=== PATIENT | female | born 1985 | race African-American/Black ===

== ENCOUNTER 2019-07-29 09:48 | Emergency (ER) | payer BC, SELFPAY ==
[2019-07-29 09:52] VITALS: BP 124/81; PULSE 60; RESP 16; TEMP 36.5; O2SAT 100
--- NOTE | 2019-07-29 10:02 | PC.NURSE ---
After patient arrived to room, This RN began to talk to patient and ask assessment questions when Pt states I'm just going to come back, I just want to go home right now. [facility].
== END 2019-07-29 10:14 | disposition left against medical advice (07) ==
DX: R10.9 Unspecified abdominal pain (principal)
CPT/HCPCS: 99199

== ENCOUNTER 2019-09-05 17:50 | Emergency (ER) | payer BC, SELFPAY ==
--- NOTE | ~2019-09-05 | CT_ITS ---
EXAMINATION: CT abdomen pelvis w con DATE: 09/05/2019 19:10 INDICATION: Low abdominal pain. TECHNIQUE: Computed tomography (CT) of the abdomen and pelvis was performed with 100 mL Omnipaque 350 intravenous contrast. Automated exposure control and iterative reconstruction technique were employe d. The dose-length product was 523.62 mGy-cm. COMPARISON: CT abdomen 11/21/2003 FINDINGS: The visualized portions of the lung bases demonstrates mild atelectasis. There is a 2.5 x 1 .1 cm nodule at right lung base abutting the pleura with punctate calcification. There are a few nodu les in the lungs measuring up to 4 mm, likely benign. No pleural effusion. The heart size is normal. No pericardial effusion. The liver, gallbladder, pancreas, spleen, and adrenal glands are normal. The re is moderate atrophy of right kidney. There are cysts in right kidney measuring up to 1.5 cm. Left kidney is normal. There are no dilated loops of bowel. The appendix is not visualized. There are no p athologically enlarged lymph nodes. There is no free intraperitoneal fluid. There is mild lumbar spon dylosis. IMPRESSION: 1. No etiology for the patient's symptoms. 2. 2.5 x 1.1 cm nodule at right lung base abutting the pleura. The differential diagnosis includes fi brous tumor of the pleura, granulomatous disease, and malignancy. PET/CT is recommended. Reviewed, dictated and finalized at location A. IMPRESSION: 1. No etiology for the patient's symptoms. 2. 2.5 x 1.1 cm nodule at right lung base abutting the pleura. The differential diagnosis includes fibrous tumor of the pleura, granulomatous disease, and mal ignancy. PET/CT is recommended.
[2019-09-05 17:53] VITALS: BP 118/60; PULSE 61; RESP 16; TEMP 36.5; O2SAT 96
--- NOTE | 2019-09-05 18:00 | ED.FEMALEGU ---
HPI - Female Genitourinary General Chief complaint: Urogenital-Female Stated complaint: LOW BACK PAIN Time Seen by Provider: 09/05/19 17:55 Source: patient Mode of arrival: ambulatory Limitations: no limitations History of Present Illness HPI Narrative: A 34 y/o female pt presents to the ED, with c/o intermittent ABD pain and lower back pain x 1 week. Pt states that she cannot bend over, denies N/V/D, or dysuria. She notes taking Tylenol with Codeine for her pain that she was previously prescribed for CP. MD elicited complaint: other (ABD Pain, lower back pain) Onset (ago): week(s) (1) Location of symptoms: low back Associated symptoms: abdominal pain and back pain (lower) Treatment prior to arrival: other (Tylenol with Codeine) Related Data Allergies Allergy/AdvReac Type Severity Reaction Status Date / Time No Known Allergies Allergy Verified 09/05/19 18:42 Review of Systems Review of Systems: All systems reviewed & are unremarkable except as noted in HPI and below Gastrointestinal: Gastrointestinal: Reports abdominal pain, Denies diarrhea, Denies nausea and Denies vomiting Genitourinary: Genitourinary: Denies dysuria Musculoskeletal: Musculoskeletal: Reports back pain (lower) and Reports other (unable to bend over) PMFSH Past Medical History Medical History Back pain Sinus problem UTI (urinary tract infection) Surgical History Surgical History H/O tubal ligation History of appendectomy History of hysterectomy Social History Social History Smoking status: Never smoker Gender identity (if verbalized by the patient): Female Exam Narrative: Exam Narrative: APPEARANCE: No acute distress, nontoxic, resting in bed Eyes: EOMI HEENT: Normocephalic, atraumatic, CV: Regular rate and rhythm without murmur RESPIRATORY: No respiratory distress. Clear to auscultation bilaterally. Abdomen: Soft, nondistended, tender palpation right lower quadrant left lower quadrant, no tenderness right upper quadrant left lower quadrant, no rebound or guarding MUSCULOSKELETAl: Moves all extremities, no clubbing cyanosis or edema Back: No midline lumbar tenderness to palpation or step-off, tender to palpation over bilateral paravertebral muscles L3-5 , pain increased with forward flexion NEURO: Awake and alert. Following commands, speech normal, no focal deficits, muscle strength 5 out of 5 bilateral lower extremities, bilateral patellar reflex 2+ SKIN:: Warm, dry. Normal Color no rash or lesions Course Course Emergency Course: Discussed with patient results of workup and diagnosis. Discussed need for follow-up with primary care, proper use of medication, and reasons to return to the emergency department. Patient understands and agrees to current treatment plan. Discussed with patient pulmonary nodule seen on CT and need for follow-up as an outpatient for further imaging to rule out cancer Vital Signs Vital signs: Vital Signs Temperature 97.7 F 09/05/19 17:53 Pulse Rate 61 09/05/19 17:53 Respiratory Rate 16 09/05/19 17:53 Blood Pressure 118/60 09/05/19 17:53 Pulse Oximetry 96 09/05/19 17:53 Temperature 99.6 F 09/05/19 18:06 Pulse Rate 65 09/05/19 18:06 Respiratory Rate 16 09/05/19 18:06 Blood Pressure 113/77 09/05/19 18:06 Pulse Oximetry 100 09/05/19 18:06 MDM - Female Genitourinary MDM Narrative Medical decision making narrative: Patient?s pain is positional and localized to back without signs of cord compression or cauda equina. Normal nuerologic exams. No fever noted and no significant risk factors for osteomyelitis or spinal epidural abscess. No symptoms or signs to suggest pain is referred from abdominal or source. There are no pulsatile masses to exam. Patient ambulates with a steady gait and is felt to be up reasonable c
[2019-09-05 18:06] VITALS: BP 113/77; PULSE 65; RESP 16; TEMP 37.6; O2SAT 100
[2019-09-05 18:28] LABS: Add Urine Microscopic? YES; Appearance Urine Clear (Clear); Bacteria Urine Trace /hpf; Bilirubin Urine Negative (Negative); Blood Urine Negative (Negative); Color Urine Yellow (Yellow); Glucose Urine UA Negative (Negative); Ketones Urine Negative (Negative); Leukocyte Esterase Ur Negative LEU/UL (Negative); Mucus Urine Rare /lpf; Nitrate Urine Negative (Negative); Protein Urine Negative (Negative); RBC Urine 0-2 /hpf (0-2); Specific Grav Ur 1.021 (1.001-1.035); Squamous Epithelial Cell Urine Many /hpf (Few); WBC Urine 0-3 /hpf
[2019-09-05 18:36] LABS: Basophils Absolute Auto 0.1 K/mm3 (0.0-0.1); Basophils Percent Auto 0.8 % (0.2-1.2); Eosinophils Absolute Auto 0.2 K/mm3 (0-0.3); Eosinophils Percent Auto 3.1 % (0-4.4); Hematocrit 36.9 % (37.0-47.0); Hemoglobin 11.7 g/dL (12.0-15.0); Immature Granulocyte Absolute 0.01 K/mm3 (0.00-0.031); Immature Granulocyte Percent A 0.2 % (0-0.5); Lymphocytes Absolute Auto 2.02 K/mm3 (0.9-3.2); Lymphocytes Percent Auto 33.2 % (18.3-44.2); Mean Corpuscular HGB Conc 31.7 g/dl (32-36); Mean Corpuscular Hemoglobin 28.1 pg (26-34); Mean Corpuscular Volume 88.5 fl (80-100); Mean Platelet Volume 10.2 fl (7.4-10.4); Monocytes Absolute Auto 0.5 K/mm3 (0.1-0.6); Monocytes Percent Auto 8.2 % (2.6-8.5); Neutrophils Absolute Auto 3.3 K/mm3 (1.3-6.7); Neutrophils Percent Auto 54.5 % (45.5-73.1); Platelet Count Result 217 k/mm3 (150-375); Red Blood Count 4.17 M/mm3 (4.2-5.4); Red Cell Distribution Width 13.9 % (11.5-14.5); White Blood Count 6.1 K/mm3 (4.5-10.0)
[2019-09-05] MEDS: SODIUM CHLORIDE 0.9% IV 1,000 ML 999 ML IV CONT (18:41)
[2019-09-05] MEDS: MORPHINE SULFATE 4 MG/ML INJ IV PUSH (18:41)
[2019-09-05 18:48] LABS: Alanine Aminotransferase 11 U/L (4-35); Albumin Level 4.1 g/dL (3.5-5.1); Alkaline Phosphatase 42 U/L (38-126); Aspartate Amino Transferase 22 U/L (14-36); Bilirubin,Total 0.8 mg/dL (0.2-1.3); Blood Urea Nitrogen 10 mg/dL (7-17); Calcium 8.8 mg/dL (8.4-10.2); Carbon Dioxide 27 mmol/L (22-30); Chloride 105 mmol/L (98-107); Estimated CRCL calculation 90 ml/min; Estimated Glomerular Filt Rate > 60; Glucose 86 mg/dL (65-105); Lipase 239 U/L (23-300); Sodium 135 mmol/L (137-145)
== END 2019-09-05 20:03 | disposition home or self-care (01) ==
PROVIDERS: Emergency Provider Emergency Medicine
DX: M54.5 Low back pain (principal); Z87.440 Personal history of urinary (tract) infections
CPT/HCPCS: 36415; 74177; 80053; 81001; 83690; 85025; 96361; 96374; 99284; J2270; J7030; Q9967

== ENCOUNTER 2019-09-10 08:05 | Outpatient (CLI) | payer BC, SELFPAY ==
--- NOTE | ~2019-09-10 | CT_ITS ---
EXAMINATION:CT chest wo con DATE: 09/10/2019 08:35 INDICATION: Pulmonary nodule. TECHNIQUE: Computed tomography (CT) of the chest was performed without intravenous contrast. Automate d exposure control and iterative reconstruction technique were employed. The dose-length product (DLP ) was 93.98 mGy-cm. COMPARISON: Chest 2 views 04/24/2008, CT abdomen and pelvis 09/05/2019 FINDINGS: There are a few scattered lung nodules measuring up to 4 mm, likely benign. There is a 1.5 x 0.5 cm nodule in basilar right lower lobe abutting the pleura, improved from 2.5 x 1.1 cm on 020. No pleural effusion. The heart size is normal. No pericardial effusion. The bones are unremarkab le. IMPRESSION: 1. Nodule at right lung base with interval improvement, likely benign. Reviewed, dictated and finalized at location A.
== END 2019-09-10 08:06 | disposition home or self-care (01) ==
LOC: ANHIMG 08:08
PROVIDERS: Visit Provider Nurse Practitioner
DX: R91.1 Solitary pulmonary nodule (principal)
CPT/HCPCS: 71250

== ENCOUNTER 2020-10-26 10:32 | Outpatient (CLI) | payer OTHER, SELFPAY ==
--- NOTE | ~2020-10-26 | US_ITS ---
EXAMINATION:US venous doppler LE LT INDICATION:Thrombophlebitis TECHNIQUE: Multiple grayscale, color flow and Doppler images of the left lower extremity deep venous systems were obtained and reviewed. COMPARISON:10/26/2010 FINDINGS: The common femoral, superficial femoral and popliteal veins demonstrate normal respiratory variation, augmentation and compressibility. Color flow is also seen within the posterior tibial, pe roneal, greater saphenous and profunda veins. IMPRESSION: 1: No lower extremity deep venous thrombosis. Reviewed, dictated and finalized at location A.
--- NOTE | ~2020-10-26 | US_ITS ---
EXAMINATION: US soft tissue abdomen EXAM DATE: 10/26/2020 11:04 INDICATION: Pain in pelvis. TECHNIQUE: Multiple grayscale and Doppler images of the hysterectomy incision palpable region were ob tained (by a technologist who performed the scan) and subsequently reviewed. There is no prior study for comparison. FINDINGS: Scanning annotated right lower abdomen area of palpable and also along area of scar demonstrates no a bdominal wall defect, subcutaneous mass, abscess or other abnormality. IMPRESSION: 1. Unremarkable ultrasound exam. Reviewed, dictated and finalized at location A.
== END 2020-10-26 10:33 ==
PROVIDERS: PCP Family Medicine; Visit Provider Family Medicine
DX: I80.9 Phlebitis and thrombophlebitis of unspecified site (principal); R10.2 Pelvic and perineal pain
CPT/HCPCS: 76705; 93971

== ENCOUNTER 2023-05-22 08:41 | Emergency (ER) | payer BC, SELFPAY ==
[2023-05-22 09:18] VITALS: BP 121/81; PULSE 100; RESP 16; TEMP 36.6; O2SAT 100
[2023-05-22 10:12] LABS: Influenza A QL RT-PCR Negative (Negative); Influenza B QL RT-PCR Negative (Negative); RSV RNA, RT-PCR Negative (Negative); SARS-CoV-2 RNA PCR Negative (Negative)
--- NOTE | 2023-05-22 10:51 | ED.GENADULT ---
HPI - General Adult General Chief complaint: Upper Respiratory Infection Stated complaint: Body aches Time Seen by Provider: 05/22/23 10:50 Source: patient Mode of arrival: ambulatory Limitations: no limitations History of Present Illness HPI narrative: Patient is a pleasant 38-year-old female with past medical history as noted below who presents emergency department today ambulatory with a steady gait for evaluation of generalized body aches allover but worse in her back and shoulders, mild headache and fatigue. Denies any fever chills. Denies any known exposure to anybody with similar illness. Denies any chest pain, shortness a breath, nausea, vomiting, abdominal pain, diarrhea, urinary symptoms, sore throat, cough. She states that she has aches down her legs as well. did not take anything for her symptoms. denies any recent fall or injury. denies any hx of PE or DVT or long periods of travel. Related Data Allergies Allergy/AdvReac Type Severity Reaction Status Date / Time No Known Allergies Allergy Verified 09/05/19 18:42 Review of Systems Review of Systems: CONSTITUTIONAL: Denies fever, chills, or sweats. +slight fatigue EYES: Denies visual changes, redness, or discharge. ENT: Denies rhinorrhea, congestion, sore throat, or otalgia. CARDIOVASCULAR: Denies chest pain, palpitations, or edema. RESPIRATORY: Denies cough or dyspnea. GASTROINTESTINAL: Denies abdominal pain, nausea, vomiting, or diarrhea. GENITOURINARY: Denies dysuria or hematuria. SKIN: Denies rash or itching. MUSCULOSKELETAL: +body aches all over more to the back and shoulders NEUROLOGIC: +mid headache. denies numbness, or weakness. PSYCHIATRIC: Denies anxiety or depression. All systems reviewed & are unremarkable except as noted in HPI and below [facility] Past Medical History Medical History Back pain Sinus problem UTI (urinary tract infection) Surgical History Surgical History H/O tubal ligation History of appendectomy History of hysterectomy Social History Social History Smoking status: Never smoker Gender identity (if verbalized by the patient): Female Exam Narrative: GENERAL: Well-appearing, well-nourished, and in no acute distress. HEAD: Normocephalic, atraumatic. EYES: PERRLA and EOMI. ENT: Nares clear, no rhinorrhea or epistaxis. Mucous membranes moist. NECK: Supple. CHEST: Clear to auscultation. No respiratory distress. HEART: Regular rate and rhythm. No murmur heard. Normal peripheral pulses. ABDOMEN: Soft, nontender, nondistended, normal active bowel sounds. EXTREMITIES: Normal range of motion. No edema. BACK: no rash/swelling/deformity/bruising. full ROM to entire back. generalized tenderness over lumbar musculature and upper trapezius shoulder region. no midline bony tenderness noted. SKIN: Warm, dry, no rash. NEURO: No focal deficits. Alert and oriented x3. CN II-XII grossly intact. distal NV intact to BLE. strength/sensation equal. PSYCH: Normal mood and affect. Course Vital Signs Vital signs: Vital Signs Temperature 97.8 F 05/22/23 09:18 Pulse Rate 100 05/22/23 09:18 Respiratory Rate 16 05/22/23 09:18 Blood Pressure 121/81 05/22/23 09:18 Pulse Oximetry 100 05/22/23 09:18 Oxygen Delivery Room Air 05/22/23 09:18 Temperature 97.8 F 05/22/23 09:18 Pulse Rate 100 05/22/23 09:18 Respiratory Rate 16 05/22/23 09:18 Blood Pressure 121/81 05/22/23 09:18 Pulse Oximetry 100 05/22/23 09:18 Oxygen Delivery Room Air 05/22/23 09:18 Medical Decision Making MDM Narrative Medical decision making narrative: Patient presents for a viral-like symptoms. Viral panel negative. After discussion with patient offered a baseline labs and urine doing sure no type of infection which she stated she is concerned with however s
--- NOTE | 2023-05-22 11:12 | PC.NURSE ---
Pt called for room and no answer x3.
== END 2023-05-22 11:29 | disposition home or self-care (01) ==
PROVIDERS: Emergency Medicine; Emergency Provider Nurse Practitioner
DX: B34.9 Viral infection, unspecified (principal); Z20.822 Contact with and (suspected) exposure to COVID-19; Z87.440 Personal history of urinary (tract) infections; Z90.710 Acquired absence of both cervix and uterus
CPT/HCPCS: 87637; 99283

== ENCOUNTER 2024-01-20 02:25 | Day surgery (SDC) | payer BC, SELFPAY ==
[2024-01-16 12:47] VITALS: BMI 26.2
--- NOTE | 2024-01-16 12:53 | PC.NURSE ---
Report to the Outpatient Waiting Room, entrance under the green pavilion located off [facility], at time _0930_ on date _[id number]_. Planned Procedure Time: _1130_. Time changes happen often and if your time is changed the preop area will call you the afternoon before. - You and your visitor will be asked to self-screen and do not enter if you have any COVID symptoms. - A mask is optional within the hospital at this time. Patients may have clear liquids (water, carbonated beverages, clear teas, apple juice) until 3 hours prior to surgery with a maximum of 20 ounces. - No food from midnight until time of surgery Take the following medications with a SIP of water the morning of surgery: __None DO NOT STOP ANY OF YOUR OTHER PRESCRIPTION MEDICATIONS PRIOR TO SURGERY ?EXCEPT THE FOLLOWING Medications to discontinue per physician ___Vitamins and probiotic Date to take last hoxc___[id number] Please no make-up, nail finnish, hairspray, perfume, deodorant, or body powder the day of surgery. No jewelry (including any body piercings) or valuables the day of surgery, leave them at home. Please take a shower or bath the night before, or the morning of, surgery with an antibacterial soap. Wear comfortable, loose fitting clothing. - Jewelry must be removed prior to entering the operating room. Rings and piercings that are not removed may be cut off. - The hospital will not accept responsibility for valuables. - Please leave all valuables, including medications, at home the day of surgery. If you are going home after surgery, a licensed auto parts delivery driver must drive you home. - NO public transportation without another adult if you receive anesthesia. - We recommend that an adult stay with you for 24 hours following discharge. - We also recommend that you do not drive, make important decision, drink alcoholic beverages, or take any drugs that were not prescribed by your health care provider for at least 24 hours after your discharge time. Follow any additional instructions given to you from your surgeon. If you or anyone in your household have experienced Covid symptoms in the past week, please notify your surgeon or the nurse liaison at the phone number below for possible testing. Telephone instructions given to __Jade___and asked if any additional questions and then verbalized understanding. Patient advised to call surgeon office or pre surgery nurse liaison [phone] if any additional questions.
--- NOTE | 2024-01-19 08:24 | PM.IMHP ---
H&P: HPI History of Present Illness Date/Time: 01/19/24 08:24 Chief Complaint: Adenoid hypertrophy tonsillar hypertrophy tonsil stones halitosis chronic tonsillitis snoring Narrative: planned procedure Review of Systems Review of Systems: All systems reviewed & are unremarkable except as noted in HPI and below PMFSH Past Medical History Medical History (Updated 12/19/23 @ 10:17 by Humphrey Hampton MD) Back pain Sinus problem UTI (urinary tract infection) Surgical History Surgical History H/O tubal ligation History of appendectomy History of hysterectomy Social History Social History Smoking status: Never smoker Living arrangements: with family Gender identity (if verbalized by the patient): Female Spiritual care concerns: No Meds Home Medications and Allergies Home Medications Medication Instructions Recorded Confirmed Type biotin 1 mg capsule 1 mg PO DAILY 12/19/23 01/16/24 History cholecalciferol (vitamin D3) 50 50 mcg PO DAILY 12/19/23 01/16/24 History mcg (2,000 unit) capsule Lactobacillus 40-Bifidobact 1 cap PO DAILY 01/16/24 01/16/24 History 3-S.thermophilus 100 billion cell capsule (Probiotic) Allergies Allergy/AdvReac Type Severity Reaction Status Date / Time No Known Allergies Allergy Verified 01/16/24 12:46 Exam Narrative: large tonsils large adenoids Assessment and Plan Assessment and plan (1) Adenoid hypertrophy: Code(s): J35.2 - Hypertrophy of adenoids Status: Acute Assessment and Plan: plan or tonsillectomy adenoidectomy. Patient also try Waterpik and will cancel surgery for this works. Risks discussed bleeding infection damage to surrounding structures nasopharyngeal reflux could be permanent change in taste changes all could be permanent. Postoperative bleeding 3-5% chance. Failure to resolve symptoms if not due to tonsils or adenoids. Need further procedures. Damage any structures the clavicles by myself. Damage to structure induction remains of anesthesia including vocal cord paralysis. Time-out for time off school up to 2 weeks inherent risk of narcotic use (2) Snoring: Code(s): R06.83 - Snoring Status: Acute (3) Halitosis: Code(s): R19.6 - Halitosis Status: Acute (4) Recurrent tonsillitis: Code(s): J03.91 - Acute recurrent tonsillitis, unspecified Status: Acute (5) Dysphagia: Code(s): R13.10 - Dysphagia, unspecified Status: Acute (6) Tonsil stone: Code(s): J35.8 - Other chronic diseases of tonsils and adenoids Status: Acute
[2024-01-20] VITALS (9 sets, daily range): BP systolic 102–126; BP diastolic 64–83; PULSE 54–75; RESP 13–20; TEMP 36.2–36.8; O2SAT 99–100
[2024-01-20] MEDS: ACETAMINOPHEN 500 MG TABLET 1000 MG PO (08:55)
[2024-01-20] MEDS: LACTATED RINGERS 1,000 ML 30 ML IV CONT ×2 (09:00→11:17)
--- NOTE | 2024-01-20 09:30 | WPDHPUPDATE1 ---
History and Physical Update Update Date/Time: 01/20/24 09:30 History and Physical has been reviewed, including an updated exam of the patient. There are NO changes in the patient's condition. Risks, benefits, and alternatives have been discussed and questions answered. Patient agrees to proceed with procedure.
--- NOTE | 2024-01-20 09:46 | WPDANESEPPF ---
Anes - Initial Pre Proc Eval Procedure: Operation Date: 01/20/24 10:00 Proposed Procedures p Tonsillectomy And Adenoidectomy - Hupmhrey Hampton MD Date/Time: 01/20/24 09:46 Surgeon: Humphrey Hampton MD Pre Op Diagnosis: Adenoids, Tonsil Hypertrophy Patient Data Age: 38 Gender: F Height: 1.69 m Weight: 73.3 kg Last Vital Signs Temp 98.2 F 01/20/24 08:39 Pulse 74 01/20/24 08:39 Resp 16 01/20/24 08:39 BP 119/83 01/20/24 08:39 Pulse Ox 100 01/20/24 08:39 O2 Del Method Room Air 01/20/24 08:39 Allergies Allergy/AdvReac Type Severity Reaction Status Date / Time No Known Allergies Allergy Verified 01/20/24 08:42 Home Medications Medication Instructions Recorded Confirmed Type biotin 1 mg capsule 1 mg PO DAILY 12/19/23 01/20/24 History cholecalciferol (vitamin D3) 50 50 mcg PO DAILY 12/19/23 01/20/24 History mcg (2,000 unit) capsule Lactobacillus 40-Bifidobact 1 cap PO DAILY 01/16/24 01/20/24 History 3-S.thermophilus 100 billion cell capsule (Probiotic) Patient hx anesthesia problems: none Family hx anesthesia problems: none Results Review: All pre-operative results and documents have been reviewed as part of the pre-operative evaluation. [facility] Past Medical History Medical History Back pain Sinus problem UTI (urinary tract infection) Surgical History Surgical History H/O tubal ligation History of appendectomy History of hysterectomy Social History Social History Smoking status: Never smoker Living arrangements: with family Gender identity (if verbalized by the patient): Female Spiritual care concerns: No Anes - Eval Final PreProcedure Day of Procedure 01/20/24 09:46 Patient weight: normal Heart: regular rate and rhythm Lungs: clear to auscultation Airway: Mallampati scale class 1 Neurological: alert and oriented Last oral intake: >/= 8 hours ASA classification: I Emergent: no Anesthetic plan: proceed Anesthesia type and monitoring: general ETT and standard monitoring Results Review: All pre-operative results and documents have been reviewed as part of the pre-operative evaluation. hx of tonsillar infections. Pt active w exercising several times a week, no cp or sob. Informed Consent: The patient's anesthetic plan and its attendant risks and benefits were discussed with the patient/family/POA. Questions were solicited and answers provided to the satisfaction of the patient/family/POA.
[2024-01-20] MEDS: fentaNYL CITRATE INJ (*CRX) 100 MCG/2 ML VIAL 25 MCG IV PUSH ×4 (11:43→11:54)
--- NOTE | 2024-01-20 11:46 | P.OP_ITS ---
Procedure Note - Detailed Date of Procedure 01/20/24 Pre-op Diagnosis Tonsil Hypertrophy, recurrent tonsillitis Post-op Diagnosis Same Procedure Performed tonsillectomy Surgeon Humphrey Hampton MD Anesthesia General Indications see above Findings really scarred in tonsils full of tonsil stones. Minimal bleeding throughout the procedure no adenoids Description of Procedure patient identified consent verified preop. Patient brought to the operating room. Time-out performed. General anesthesia induced endotracheal tube secured airway. Patient prepped draped position procedure confirmed 2nd time-out performed. McIvor mouth gag inserted to reveal tonsils described above. Tonsils removed bilaterally in the extracapsular plane using Bovie electrocautery setting of 8 and 10 as well as bipolar setting of 8. Any bleeding was controlled and suction Bovie electrocautery setting time. The bleeding was controlled with the Bovie and suction cautery. In-between tonsils McIvor mouth gag was lowered reopened reviewed allow blood flow to return to the tongue. Once the tonsils were out the adenoid pad was viewed no adenoid pad existed. McIvor mouth gag was lowered for 30 seconds reopened to reveal no furt her bleeding. Total blood loss 1 cc. McIvor mouth gag removed. Care the patient given Anesthesiology performed all dictated portions procedure no complications patient was taken to PACU Estimated Blood Loss 1 Drains No Packing No Pathology Yes Complications No immediate complications Condition Stable Disposition PACU [facility] Billing Surgery - Charge Forward: Surgery Billing
[2024-01-20] MEDS: oxyCODONE HCL (*CRX) 5 MG TAB IR PO (13:06)
== END 2024-01-20 13:42 | disposition home or self-care (01) ==
PROVIDERS: Visit Provider Otolaryngology
PROC: (CPT 42826; principal; 2024-01-20 10:00)
DX: J35.1 Hypertrophy of tonsils (principal); J35.8 Other chronic diseases of tonsils and adenoids; R06.83 Snoring
CPT/HCPCS: 42826; 88304; A9270; J0330; J1100; J2250; J2405; J2704; J3010; J7120

== ENCOUNTER 2024-01-21 04:55 | Emergency (ER) | payer BC, SELFPAY ==
[2024-01-21 05:02] VITALS: BP 140/94; PULSE 90; RESP 17; TEMP 36.8; O2SAT 100
[2024-01-21 05:06] VITALS: BP 140/94; PULSE 86; RESP 18; TEMP 36.8; O2SAT 100
--- NOTE | 2024-01-21 05:13 | ED.GENADULT ---
HPI - General Adult General Chief complaint: Unspecified Stated complaint: coughing up blood, tonsilectomy yesterday Time Seen by Provider: 01/21/24 05:06 History of Present Illness HPI narrative: This is a 38-year-old female with a past medical history significant for recent tonsillectomy and adenoidectomy yesterday 01/19. Procedures performed by Dr. Hampton and patient was discharged home after an uncomplicated course the same day. Patient states that she is having some soreness in her throat and difficulty swallowing. She states that she was able to go home and take a nap however she woke up and coughs up of couple flecks of blood which prompted her to seek evaluation. She has been taking her pain medications as prescribed which helps with the pain but states that she has difficulty swallowing, was concerned that she was bleeding and what get evaluated. Denies any fevers, chills, headache, vision changes. She is tolerating her own secretions and able to swallow she just states that it is painful. Otherwise has no other complaints, no chest pain, shortness a breath, nausea, vomiting, abdominal pain. Related Data Home Medications Medication Instructions Recorded Confirmed biotin 1 mg capsule 1 mg PO DAILY 12/19/23 01/20/24 cholecalciferol (vitamin D3) 50 50 mcg PO DAILY 12/19/23 01/20/24 mcg (2,000 unit) capsule Lactobacillus 40-Bifidobact 1 cap PO DAILY 01/16/24 01/20/24 3-S.thermophilus 100 billion cell capsule (Probiotic) Allergies Allergy/AdvReac Type Severity Reaction Status Date / Time No Known Allergies Allergy Verified 01/21/24 05:06 Review of Systems Review of Systems: As described above in HPI COUNTS INCLUDE 234 BEDS AT THE [facility] Past Medical History Medical History (Updated 01/21/24 @ 06:24 by Raul Norman MD) Back pain Sinus problem UTI (urinary tract infection) Surgical History Surgical History H/O tubal ligation History of appendectomy History of hysterectomy Social History Social History Smoking status: Never smoker Living arrangements: with family Gender identity (if verbalized by the patient): Female Spiritual care concerns: No Exam Narrative: GENERAL: [Well-appearing, well-nourished, and in no acute distress.] HEAD: [Normocephalic, atraumatic.] EYES: [PERRLA and EOMI.] ENT: Recent tonsillectomy and adenoidectomy evident with recent cauterizations of the posterior oropharynx and tonsillar pillars without any active bleeding. Uvula is midline without any edema. No pooling of secretions. No active bleeding the posterior oropharynx. No exudates or effusions. NECK: Supple. CHEST: [Clear to auscultation. No respiratory distress.] HEART: [Regular rate and rhythm]. No murmur heard. [Normal peripheral pulses.] ABDOMEN: [Soft, nondistended], [nontender], [No rigidity or guarding] EXTREMITIES: Normal range of motion. [No edema.] SKIN: Warm, dry, no rash. NEURO: [No focal deficits]. Alert and oriented [x3.] PSYCH: [Normal mood and affect.] Course Vital Signs Vital signs: Vital Signs Temperature 36.8 C 01/21/24 05:02 Pulse Rate 90 01/21/24 05:02 Respiratory Rate 17 01/21/24 05:02 Blood Pressure 140/94 H 01/21/24 05:02 Pulse Oximetry 100 01/21/24 05:02 Oxygen Delivery Room Air 01/21/24 05:02 Temperature 36.8 C 01/21/24 05:06 Pulse Rate 86 01/21/24 05:06 Respiratory Rate 18 01/21/24 05:06 Blood Pressure 140/94 H 01/21/24 05:06 Pulse Oximetry 100 01/21/24 05:06 Oxygen Delivery Room Air 01/21/24 05:02 Medical Decision Making [facility] Narrative Medical decision making narrative: This is a 38-year-old female with recent tonsillectomy and adenoidectomy yesterday morning as an outpatient procedure. Today she presents with some difficulty in swallowing and coughing up small amounts of blood over last few hours. Yolanda
== END 2024-01-21 06:30 | disposition home or self-care (01) ==
PROVIDERS: Emergency Provider Student in an Organized Health Care Education/Training Program
DX: G89.18 Other acute postprocedural pain (principal); Z87.440 Personal history of urinary (tract) infections; Z90.710 Acquired absence of both cervix and uterus
CPT/HCPCS: 99281

== ENCOUNTER 2025-03-24 21:25 | Emergency (ER) | payer SELFPAY ==
[2025-03-24 21:29] VITALS: BP 117/74; PULSE 58; RESP 18; TEMP 36.9; O2SAT 100
--- OUTSIDE RECORDS SUMMARY | 2025-03-25 00:48 | XMS_ITS | Clinical Summary ---
Author Organization [facility] Virtual Care Address [address] [place] [phone] Phone Care Team Providers Care Hat Lining Paster Name Role Phone Leslye Seaman NP Primary Care Provider +1- [phone] Allergies No known active allergies Medications ergocalciferol (VITAMIN D) 50,000 unit capsule Take 1 capsule (50,000 Units total) by mouth every [address] (PROTONIX) 40 mg EC tablet Take 1 tablet (40 mg total) by mouth daily 07/15/2023 Active lidocaine viscous (XYLOCAINE) 2 % solution Take 10 mL by mouth 3 (three) times a day 100 mL 09/10/2023 Active Active Problems Problem Noted Date Diagnosed Date Prediabetes 05/27/2023 Vitamin D deficiency 05/27/2023 Pelvic peritoneal adhesions, 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 Dysmenorrhea 01/25/2016 Social History Tobacco Use Types Packs/Day Years Used Date Smoking Tobacco: Never Assessed Comments Unknown Sex and Gender Information Value Date Recorded Sex Assigned at Not on file 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 Gender Identity Not on file Sexual Orientation Not on file Obstetrics History Last Filed Vital Signs Vital Sign Reading Time Taken Comments Blood Pressure 110/72 09/10/2023 2:34 PM CDT Pulse 64 09/10/2023 2:34 PM CDT Temperature 36.4 C (97.6 F) 09/10/2023 2:34 PM CDT Respiratory Rate 16 09/10/2023 2:34 PM CDT Oxygen Saturation 98% 09/10/2023 2:34 PM CDT Inhaled Oxygen Concentration - - Weight 76.2 kg (168 lb) 09/10/2023 2:34 PM CDT Height 167.6 cm (5' 6) 09/10/2023 2:34 PM CDT Body Mass Index 27.12 09/10/2023 2:34 PM CDT Plan of Treatment Health Maintenance Due Date Last Done Comments Breast Cancer Screening-Mammogram 1983 Cervical Cancer Screening 1983 Depression Screening 1983 Hepatitis C Screening 1983 Varicella Vaccines (1 of 2 - 13+ 2-dose series) 02/26/1996 Hepatitis B Screening 2001 Regular Well Visit/Exam 18-64 2001 HPV Vaccines (1 - 3-dose SCDM series) 2010 Covid-19 Vaccine ( - season) 2025 02/10/2021, 09/07/2020 Influenza Vaccine (#1) 2025 04/05/2018 DTaP/Tdap/Td Vaccine (6 - Td or Tdap) 02/07/2028 02/06/2018, 11/03/1987, 01/02/1987, Additional history exists Pneumococcal vaccine <65 Aged Out No longer eligible based on patient's age to complete this topic Insurance FORMERLY [facility] [employer] [employer] Address: [facility] [id number] [address] [facility] Care Teams Hat Lining Paster Relationship Specialty Start Date End Date Leslye Seaman NP [address] [address] PCP - General Nurse Practitioner 09/10/23
== END 2025-03-25 00:55 | disposition left against medical advice (07) ==
DX: M79.602 Pain in left arm (principal)
CPT/HCPCS: 99199

== ENCOUNTER 2025-03-28 07:58 | Emergency (ER) | payer SELFPAY ==
--- OUTSIDE RECORDS SUMMARY | 2025-03-28 08:04 | XMS_ITS | Clinical Summary ---
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
--- OUTSIDE RECORDS SUMMARY | 2025-03-28 08:04 | XMS_ITS | Clinical Summary ---
Author Organization [facility] Address [address] [place] [address] Care Team Providers Care Atmospheric Technician Name Role Phone Roro Lopez MD Primary Care Provider Source Comments [facility],non-owned Affiliates and Associated Physician Practices is amultiple site organization consisting of ambulatory clinics and hospital sitesin [place], [place], [place] and [place]. This disclosure is being madepursuant to the Care Everywhere program and may not contain all information available regarding this patient. Last updated 18.[employer] Allergies Active Allergy Reactions Criticality Noted Date Comments Pantoprazole Headache 10/17/2023 Medications * Be aware that medications may not be up to date on this document. Alwaysverify current medications with the patient. famotidine (Pepcid) 20 MG tabletIndication s:Gastroesophage al reflux disease, unspecified whether esophagitis present Take 1 (one) tablet by mouth once daily 30 tablet 4 Active Additional Information Patient not taking.Reported on 01/16/2024 vitamin D, ergocalciferol, (Drisdol) 1.25 MG (19886 UT) capsule TAKE 1 CAPSULE BY MOUTH EVERY 7 DAYS 12 capsule 1 4 Active ondansetron, disintegrating, (Zofran ODT) 4 MG tabletIndication s:Viral syndrome,Nausea Take 1 (one) tablet by mouth every 6 hours as needed for Nausea/Vomiting Allow tablet to dissolve on the tongue 30 tablet 4 Active Active Problems Problem Noted Date Diagnosed Date Elevated LDL cholesterol level 10/17/2023 Gastroesophageal reflux disease 10/17/2023 Vitamin D deficiency 05/27/2023 Prediabetes 05/27/2023 Pelvic peritoneal adhesions, 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 (F LUZONE; FLULAVAL; FLUARIX; AFLURIA QUADRIVALENT; 6MO+), 0.5 ML (IIV4) 04/05/2018 MMR VACCINE 01/05/1993,01/02/1987 POLIO OPV 11/03/1987, 7,11/02/1985,1983 TDAP, HISTORIC VACCINE 02/06/2018 Family History Medical History Relation Name Comments None Known Father Parkinson's Disease Maternal Grandfather Brain Tumor Maternal Grandmother None Known Mother None Known Paternal Grandfather None Known Paternal Grandmother Relation Name Status Comments Brother Alive 2 brothers Father Alive Maternal Grandfather Alive Maternal Grandmother Mother Alive Paternal Grandfather Paternal Grandmother Alive Social History Tobacco Use Types Packs/Day Years Used Date Smoking Tobacco: Never Tobacco Cessation:Counseling Given: Not Answered Alcohol Use Standard Drinks/Week Comments No 0 (1 standard drink = 0.6 oz pur e alcohol) PHQ-2 Answer Date Recorded Patient Health Questionnaire-2 Score 0 01/16/2024 Comments No Sex and Gender Information Value Date Recorded Sex Assigned at Not on file Legal Sex Female 2:09 PM CDT Gender Identity Not on file Sexual Orientation Not on file Last Filed Vital Signs Vital Sign Reading Time Taken Comments Blood Pressure 115/64 01/16/2024 9:15 AM CDT Pulse 65 01/16/2024 9:15 AM CDT Temperature 36.3 C (97.3 F) 01/16/2024 9:15 AM CDT Respiratory Rate 20 01/16/2024 9:15 AM CDT Oxygen Saturation 99% 01/16/2024 9:15 AM CDT Inhaled Oxygen Concentration - - Weight 75.4 kg (166 lb 3.2 oz) 01/16/2024 9:15 A M CDT Height 168.9 cm (5' 6.5) 01/16/2024 9:15 AM CDT Body Mass Index 26.42 01/16/2024 9:15 AM CDT Plan of Treatment Health Maintenance Due Date Last Done Comments MAMMOGRAM 1983 HPV VACCINE (1 - 3-dose SCDM series) 2010 DEPRESSION SCREENING 06/09/2024 07/15/2023, 05/23/20 23 INFLUENZA VACCINE (#1) 2025 03/12/2023, 2017 COVID-19 VACCINE ( season) 2027 02/10/2021, 02/10/2021, 09/07/2020 Postponed from 02/07/2025 (Family/Guardian Directed) SCREENING FOR DIABETES 06/22/2027 , 05/24/2023, 05/24/2023, Additional history exists DTAP/TDAP/TD VACCINES (6 - Td or Tdap) 02/07/2028 02/06/2018, 11/03/1987, 01/02/1987, Additional history exists LIPID TESTING 06/22/2029 06/22/2024, 05/24/2023 ZOSTER VACCINE (1 of 2) 2033 HEPATITIS C SCREENING Completed 05/24/2023 HIV SCREENING Completed 05/24/2023 HEPATITIS B VACCINE Discontinued HIB VACCINE Aged Out No longer eligi ble based on patient's age to complete this topic MENINGOCOCCAL (Group B) VACCINE SHARED DECISION-MAKING Aged Out No longer eligible based on patient's age to complete this topic MENINGOCOCCAL GROUPS A/C/Y/W VACCINE Aged Out No longer eligible based on patient's age to complete this topic PNEUMOCOCCAL VACCINE Aged Out No long er eligible based on patient's age to complete this topic Procedures Procedure Name Priority Date/Time Associated Diagnosis Comments HEMOGLOBIN A1C Routine 06/22/2024 11:15 AM ALL SOURCE INTELLIGENCE TECHNICIAN Pre-diabetes LIPID PROFILE Routine 06/22/2024 11:15 AM ALL SOURCE INTELLIGENCE TECHNICIAN Elevated LDL cholesterol level HEPATITIS C ANTIBODY W RFLX PCR Routine 05/24/2023 9:27 AM ALL SOURCE INTELLIGENCE TECHNICIAN Screen for STD (sexually transmitted disease) HIV-1 HIV-2 ANTIBODY + HIV P24 AG PANEL Routine 05/24/2023 9:27 AM ALL SOURCE INTELLIGENCE TECHNICIAN Screen for STD (sexually transmitted disease) from Last 3 Months or Most Recently Relevant to Health Maintenance Results * (ABNORMAL) HEMOGLOBIN A1C (06/22/2024 11:15 AM ALL SOURCE INTELLIGENCE TECHNICIAN) Pathologist [facility] Hemoglobin A1c 5.8(H) 4.8 - 5.6 % [facility] ACCOUNT BILL Comment: Prediabetes: 5.7 - 6.4 Diabetes: >6.4 Glycemic control for adults with diabetes: <7.0 Blood BLOOD SPECIMEN / Unknown 06/22/2024 11:15 AM ALL SOURCE INTELLIGENCE TECHNICIAN 06/22/2024 Narrative [facility] ACCOUNT BILL - 06/23/2024 12:06 AM ALL SOURCE INTELLIGENCE TECHNICIAN Performed at: [address] [id number] Asphalt Paver: Horacio Carvalho PhD, Phone: [phone] us Leslye Seaman APRN-GRADUATE STUDIES [facility] - CHEMISTRY ORDERABL ES Final Result [facility] ACCOUNT BILL [address] [place] [address] * (ABNORMAL) LIPID PROFILE (LIPID PANEL) (06/22/2024 11:15 AM ALL SOURCE INTELLIGENCE TECHNICIAN) Cholesterol 201(H) 100 - 199 mg/dL [facility] ACCOUNT BILL Triglycerides 45 0 - 149 mg/dL [facility] ACCOUNT BILL HDL Cholesterol 78 >39 mg/dL [facility] ACCOUNT BILL VLDL Calculated 8 5 - 40 mg/dL [facility] ACCOUNT BILL LDL Calculated 115(H) 0 - 99 mg/dL [facility] ACCOUNT BILL Blood BLOOD SPECIMEN / Unknown 06/22/2024 11:15 AM ALL SOURCE INTELLIGENCE TECHNICIAN 06/22/2024 Narrative [facility] ACCOUNT BILL - 06/23/2024 7:09 AM ALL SOURCE INTELLIGENCE TECHNICIAN [facility]formed at: - [facility] [address] [place], [place] [id number] Asphalt Paver: Horacio Carvalho PhD, Phone: [phone] Leslye Seaman TIRE BALANCER-GRADUATE STUDIES [facility] - CHEMISTRY ORDERABL ES Final Result Performing Organization Address [facility] Co de Phone Number [facility] ACCOUNT BILL [address] [place] [address] * HEPATITIS C ANTIBODY W RFLX PCR (05/24/2023 9:27 AM ALL SOURCE INTELLIGENCE TECHNICIAN) Hepatitis C Antibody Non Reactive Non Reactive [facility] ACCOUNT BILL Blood BLOOD SPECIMEN / Unknown 05/24/2023 9:27 AM ALL SOURCE INTELLIGENCE TECHNICIAN 05/24/2023 Narrative Resulting Agency Comment Lab Testing performed at: [facility] [id number] Leslye Seaman TIRE BALANCER-GRADUATE STUDIES [facility] - CHEMISTRY ORDERABL ES Final Result Performing Organization Address [facility] de Phone Number [facility] ACCOUNT BILL [address] [place] [address] * HIV-1 HIV-2 ANTIBODY + HIV P24 AG PANEL (05/24/2023 9:27 AM ALL SOURCE INTELLIGENCE TECHNICIAN) HIV Screen 4th Generation w Reflex Non Reactive Non Reactive [facility] ACCOUNT BILL Comment: HIV Negative HIV-1/HIV-2 antibodies and HIV-1 p24 antigen were NOT detected. There is no laboratory evidence of HIV infection. Blood BLOOD SPECIMEN / Unknown 05/24/2023 9:27 AM ALL SOURCE INTELLIGENCE TECHNICIAN 05/24/2023 Narrative Resulting Agency Comment Lab Testing performed at: [facility] [place] [id number] [facility] [id number] Leslye Seaman TIRE BALANCER-GRADUATE STUDIES [facility] - CHEMISTRY ORDERABL ES Final Result Performing Organization Address [facility] Co de Phone Number [facility] ACCOUNT BILL [address] [place] [address] from Last 3 Months or Most Recently Relevant to Health Maintenance Insurance ANTHEM SELF PAY NO INSURANCE Member Subscriber Plan / Payer (Ef fective for All Dates) Name:Jade Mondragon Member ID:Not on file Relation to Subscriber:Not on file Name:JADE MONDRAGON Subscriber ID:Not on file (Home) Address: [facility] [address] [place] [address] Payer ID:Not on file Group ID:Not on file Type:Self Pay Address: [place], [place] Advance Directives * Full Code (Latest Code Status on File) Date Activated Date Inactivated Comments 01/26/2016 1:24 PM 01/27/2016 6:59 PM Care Teams Atmospheric Technician Relationship Specialty Start Date End Date Roro Lopez MD [address] [place] [address] PCP - General Internal Medicine 05/23/23
[2025-03-28 08:10] VITALS: BP 118/82; PULSE 65; RESP 15; TEMP 36.7; O2SAT 100
[2025-03-28] MEDS: KETOROLAC 30 MG/ML VIAL (*BKC) IM (08:24)
[2025-03-28 08:34] LABS: Add Urine Microscopic? NO; Appearance Urine Clear (Clear); Glucose Urine UA Negative (Negative); Leukocyte Esterase Ur Negative LEU/UL (Negative); Nitrate Urine Negative (Negative); Specific Grav Ur 1.020 (1.001-1.035)
--- OUTSIDE RECORDS SUMMARY | 2025-03-28 08:54 | XMS_ITS | Clinical Summary ---
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 [id number] [place] [phone] [facility] Care Teams Residential Treatment Staff Relationship Specialty Start Date End Date Leslye Seaman NP [address] [address] PCP - General Nurse Practitioner 09/10/23
--- OUTSIDE RECORDS SUMMARY | 2025-03-28 08:54 | XMS_ITS | Clinical Summary ---
Author Organization [facility] Address [address] [place] [address] Care Team Providers Care Entry Specialist Name Role Phone Roro Lopez MD Primary Care Provider Source Comments [facility],non-owned Affiliates and Associated Physician Practices is amultiple site organization consisting of ambulatory clinics and hospital sitesin [place], [place], [place] and [place]. This disclosure is being madepursuant to the Care Everywhere program and may not contain all information available regarding this patient. Last updated 18.[employer] Allergies Active Allergy Reactions Criticality Noted Date [...] 01/16/2024 vitamin D, ergocalciferol, (Drisdol) 1.25 MG (23941 UT) capsule TAKE 1 CAPSULE BY MOUTH [...] Comments HEMOGLOBIN A1C Routine 06/22/2024 11:15 AM PHARMACY INTERN Pre-diabetes LIPID PROFILE Routine 06/22/2024 11:15 AM PHARMACY INTERN Elevated LDL cholesterol level HEPATITIS C ANTIBODY W RFLX PCR Routine 05/24/2023 9:27 AM PHARMACY INTERN Screen for STD (sexually transmitted disease) HIV-1 HIV-2 ANTIBODY + HIV P24 AG PANEL Routine 05/24/2023 9:27 AM PHARMACY INTERN Screen for STD (sexually transmitted disease) from Last 3 Months or Most Recently Relevant to Health Maintenance Results * (ABNORMAL) HEMOGLOBIN A1C (06/22/2024 11:15 AM PHARMACY INTERN) Pathologist [facility] Hemoglobin A1c 5.8(H) 4.8 - 5.6 % [facility] ACCOUNT BILL Comment: Prediabetes: 5.7 - 6.4 Diabetes: >6.4 Glycemic control for adults with diabetes: <7.0 Blood BLOOD SPECIMEN / Unknown 06/22/2024 11:15 AM PHARMACY INTERN 06/22/2024 Narrative [facility] ACCOUNT BILL - 06/23/2024 12:06 AM PHARMACY INTERN Performed at: [address] [id number] Prepress Stripper: Horacio Carvalho PhD, Phone: [phone] us Leslye Seaman APRN-ASSISTANT CITY ATTORNEY LAB - CHEMISTRY ORDERABL ES Final Result [facility] ACCOUNT BILL [address] [place] [address] * (ABNORMAL) LIPID PROFILE (LIPID PANEL) (06/22/2024 11:15 AM PHARMACY INTERN) Cholesterol 201(H) 100 - 199 mg/dL [facility] ACCOUNT BILL Triglycerides 45 0 - 149 mg/dL [facility] ACCOUNT BILL HDL Cholesterol 78 >39 mg/dL [facility] ACCOUNT BILL VLDL Calculated 8 5 - 40 mg/dL [facility] ACCOUNT BILL LDL Calculated 115(H) 0 - 99 mg/dL [facility] ACCOUNT BILL Blood BLOOD SPECIMEN / Unknown 06/22/2024 11:15 AM PHARMACY INTERN 06/22/2024 Narrative [facility] ACCOUNT BILL - 06/23/2024 7:09 AM PHARMACY INTERN [facility]formed at: [facility] [address] [place], [place] [id number] Prepress Stripper: Horacio Carvalho PhD, Phone: [phone] Leslye Seaman CENTER RECEPTIONIST-ASSISTANT [place] ATTORNEY LAB - CHEMISTRY ORDERABL ES Final Result Performing Organization Address [facility] Co de Phone Number [facility] ACCOUNT BILL [address] [place] [address] * HEPATITIS C ANTIBODY W RFLX PCR (05/24/2023 9:27 AM PHARMACY INTERN) Hepatitis C Antibody Non Reactive Non Reactive [facility] ACCOUNT BILL Blood BLOOD SPECIMEN / Unknown 05/24/2023 9:27 AM PHARMACY INTERN 05/24/2023 Narrative Resulting Agency Comment Lab Testing performed at: [facility] [id number] Leslye Seaman CENTER RECEPTIONIST-ASSISTANT CITY ATTORNEY LAB - CHEMISTRY ORDERABL ES Final Result Performing Organization Address [facility] de Phone Number [facility] ACCOUNT BILL [address] [place] [address] * HIV-1 HIV-2 ANTIBODY + HIV P24 AG PANEL (05/24/2023 9:27 AM PHARMACY INTERN) HIV Screen 4th Generation w Reflex Non Reactive Non Reactive [facility] ACCOUNT BILL Comment: HIV Negative HIV-1/HIV-2 antibodies and HIV-1 p24 antigen were NOT detected. There is no laboratory evidence of HIV infection. Blood BLOOD SPECIMEN / Unknown 05/24/2023 9:27 AM PHARMACY INTERN 05/24/2023 Narrative Resulting Agency Comment Lab Testing performed at: [facility] [place] [id number] [facility] [id number] Leslye Seaman CENTER RECEPTIONIST-ASSISTANT [place] ATTORNEY LAB - CHEMISTRY ORDERABL ES Final Result Performing Organization Address [facility] Co de Phone Number [facility] ACCOUNT BILL [address] [place] [address] from Last 3 Months or Most Recently Relevant to Health Maintenance Insurance AN[employer]M SELF PAY NO INSURANCE Member Subscriber Plan / Payer (Ef fective for All Dates) Name:Jade Mondragon Member ID:Not on file Relation to Subscriber:Not on file Name:JADE MONDRAGON Subscriber ID:Not on file (Home) Address: [facility] [address] [place] [address] Payer ID:Not on file Group ID:Not on file Type:Self Pay Address: [place], [place] Advance Directives * Full Code (Latest Code Status on File) Date Activated Date Inactivated Comments 01/26/2016 1:24 PM 01/27/2016 6:59 PM Care Teams Entry Specialist Relationship Specialty Start Date End Date Roro Lopez MD [address] [place] [address] PCP - General Internal Medicine 05/23/23
--- NOTE | 2025-03-28 09:05 | ED.BACK ---
HPI - Back Pain/Injury General Chief Complaint: Back Pain/Injury Stated Complaint: upper back pain Time Seen by Provider: 03/28/25 08:11 History of Present Illness HPI Narrative: Patient is a 40-year-old female who presents ER with pain to her left upper back and right flank. Worsening over last 5 days. Initially had some discomfort in her left axilla where she has some painful lumps. No fevers or chills or sweats. That pain had been radiating towards her chest but has now stopped. No drainage from the area arm. She does shave her armpits every 2 days. Related Data Home Medications ?Medication ?Instructions ?Recorded ?Confirmed ?Last Taken ?Type biotin 1 mg capsule 1 mg PO DAILY 12/19/23 01/20/24 Unknown History cholecalciferol (vitamin D3) 50 50 mcg PO DAILY 12/19/23 01/20/24 Unknown History mcg (2,000 unit) capsule Lactobacillus 40-Bifidobact 1 cap PO DAILY 01/16/24 01/20/24 Unknown History 3-S.thermophilus 100 billion cell capsule (Probiotic) Allergies Allergy/AdvReac Type Severity Reaction Status Date / Time No Known Allergies Allergy Verified 03/28/25 08:00 Review of Systems Review of Systems: All systems reviewed & are unremarkable except as noted in HPI and below Constitutional: Constitutional: Reports no additional constitutional complaints ENT: Reports system reviewed and no additional complaints, except as documented Cardiovascular: Cardiovascular: Reports no additional cardiovascular complaints Musculoskeletal: Musculoskeletal: Reports no additional musculoskeletal complaints PMFSH Past Medical History Medical History (Updated 03/28/25 @ 10:15 by Lei Spivey MD) Back pain UTI (urinary tract infection) Sinus problem Surgical History Surgical History History of hysterectomy H/O tubal ligation History of appendectomy Social History Social History Smoking status: Never smoker Living arrangements: with family Gender identity (if verbalized by the patient): Female Spiritual care concerns: No Exam Narrative: GENERAL: Well-appearing, well-nourished, and in no acute distress. HEAD: Normocephalic, atraumatic. ENT: Mucous membranes moist. CHEST: Clear to auscultation. No respiratory distress. HEART: Regular rate and rhythm. Normal peripheral pulses. ABDOMEN: Soft, nontender, nondistended. EXTREMITIES: Normal range of motion. No edema. SKIN: Warm, dry, no rash. Tender lymphadenopathy of the left axilla without fluctuant abscess or overlying cellulitis. NEURO: Alert and oriented x3. PSYCH: Normal mood and affect. Course Course Emergency Course: Urinalysis unremarkable. Will place on antibiotics for possible axillary infection, no drainable abscess. Pain control with anti-inflammatories and a little bit of [place] for home. Vital Signs Vital signs: Vital Signs Temperature 98.1 F 03/28/25 08:10 Pulse Rate 65 03/28/25 08:10 Respiratory Rate 15 03/28/25 08:10 Blood Pressure 118/82 03/28/25 08:10 Pulse Oximetry 100 03/28/25 08:10 Oxygen Delivery Room Air 03/28/25 08:10 Temperature 98.1 F 03/28/25 08:10 Pulse Rate 64 03/28/25 09:21 Respiratory Rate 16 03/28/25 09:21 Blood Pressure 107/70 03/28/25 09:21 Pulse Oximetry 100 03/28/25 09:21 Oxygen Delivery Room Air 03/28/25 08:10 MDM - Back Pain/Injury Lab Data Labs: Lab Results 03/28/25 Range/Units 08:24 Urine Color Yellow (Yellow) Urine Appearance Clear (Clear) Urine pH 6.0 (5.0-9.0) Ur Specific [place] 1.020 (1.001-1.035) Urine Protein Negative (Negative) mg/dL Urine Glucose (UA) Negative (Negative) mg/dL Urine Ketones Trace H (Negative) mg/dL Ur Blood (Man) Negative (Negative) Urine Nitrate Negative (Negative) Urine Bilirubin Negative (Negative) Urine Urobilinogen 1.0 (<2.0) mg/dL Leukocyte Esterase Rfl Negative (Negative) CARRI/UL Discharge Plan Discharge Clinical Impression: Infection of axilla Patient Disposition: Home Condition: Stable Instructions: Cellulitis (ED) Additional Instructions: Return ER if you have worsening redness or pain in your arm, you can not breathe, you lose consciousness, you have additional concerns. Patient Language: [place] Prescriptions: New sulfamethoxazole-trimethoprim [Bactrim DS] 800-160 mg tablet 1 tablet PO Q12H Qty: 14 0RF hydrocodone-acetaminophen 5-325 mg tablet 1 tablet PO Q6H PRN (Reason: pain) Qty: 12 0RF No Action biotin 1 mg capsule 1 mg PO DAILY cholecalciferol (vitamin D3) 50 mcg (2,000 unit) capsule 50 mcg PO DAILY Probiotic 100 billion cell Capsule 1 cap PO DAILY oxycodone 5 mg tablet 5 mg PO .q6-q8h PRN (Reason: pain) Qty: 30 0RF Follow-up/Referrals: Jurgen,Leslye Klein APRN [Primary Care Provider, Unknown] - 1 Week
[2025-03-28 09:21] VITALS: BP 107/70; PULSE 64; RESP 16; O2SAT 100
[2025-03-28 10:45] VITALS: BP 111/68; PULSE 61; RESP 15; TEMP 36.9; O2SAT 100
== END 2025-03-28 10:50 | disposition home or self-care (01) ==
PROVIDERS: Emergency Provider Emergency Medicine; PCP Nurse Practitioner Family
DX: I88.9 Nonspecific lymphadenitis, unspecified (principal); Z87.440 Personal history of urinary (tract) infections
CPT/HCPCS: 81003; 96372; 99283; J1885